=== PATIENT | male | born 1945 | race Caucasian/White ===

== ENCOUNTER 2018-12-25 12:57 | Emergency (ER) | payer MEDICARE, MEDICAID ==
[~2018-12-25] VITALS: Ht 170.2 cm; Wt 68.9 kg
--- NOTE | 2018-12-25 13:06 | NUR ---
BIB [facility] FOR FALL AND LACERATION ON HEAD. HEAD HAS A DRESSING ON IT. PATIENT IS AWAKE AND ALERT IN NO DISTRESS. VITAL SIGNS WNL. FAMILY AT BEDSIDE.
[2018-12-25] MEDS ORDERED: ACETAMINOPHEN 325 MG TABLET PO ONE (13:30)
--- NOTE | 2018-12-25 13:35 | NUR ---
Pt.was seen by ,family at bedside.
[2018-12-25] MEDS ORDERED: ACETAMINOPHEN 325 MG TABLET ONE (13:41)
--- NOTE | 2018-12-25 16:01 | NUR ---
at bedside, placing sutures.
--- NOTE | 2018-12-25 16:15 | NUR ---
DRESSING DONE BY BONNY /ISABEL,PT.TOLERATED WELL,DENIES ANY PAIN @ TIME.
[2018-12-25] MEDS ORDERED: LIDOCAINE 1%-EPI 1:100,000 20 ML VIAL IJ ONE (16:30)
[2018-12-25 16:33] VITALS: BP 128/76
== END 2018-12-25 16:49 | disposition home or self-care (01) ==
LOC: EDBD 12:57 → ER 12:57
DX: S01.81XA Laceration without foreign body of other part of head, initial encounter (principal); F32.9 Major depressive disorder, single episode, unspecified; W01.0XXA Fall on same level from slipping, tripping and stumbling without subsequent striking against object, initial encounter; Y92.89 Other specified places as the place of occurrence of the external cause; Y93.89 Activity, other specified; Y99.8 Other external cause status
CPT/HCPCS: 12013; 70450; 70486; 99284; J3490; A4217; A4663